=== PATIENT | female | born 1980 | race Caucasian/White ===

== ENCOUNTER 2019-08-11 22:20 | Emergency (ER) | payer SELFPAY ==
[2019-08-11 22:23] VITALS: BP 121/87; PULSE 103; RESP 18; TEMP 36.4; O2SAT 97; BMI 25.7
--- NOTE | 2019-08-11 22:53 | ED_ITS ---
Entered by Vivi Conti, acting as scribe for Mukul Pan DO Aug 11, 2019 22:20 HPI - Chest Pain General: Chief Complaint: Chest Pain Stated Complaint: chest pain Time Seen by Provider: 08/11/19 22:52 Source: patient Mode of arrival: ambulatory Limitations: no limitations History of Present Illness: HPI narrative: 39 yo f came to the er pov for ches t pain. Onset was 1 week ago. Pt states that the pain is in the middle of her chest, she also has been having some rt arm pain and her hands have been tingling. Pt states that she does have panic attacks as well. Pt states that when she takes a deep breath she has a sharp pain that shoots through her back. MD complaint: chest pain Onset (ago): week(s) (1 week ago) Timing of current episode: episodic Prior episodes: Yes Onset: during rest Pain location: substernal Pain radiation: right arm Severity: mild Quality: aching and heaviness Relieving factors: nothing Exacerbating factors: nothing Associated symptoms: Reports no associated symptoms; Deny abdominal pain, dyspnea, fever(s), nausea, palpitations or vomiting Risk Factors: Coronary artery disease risk factors: hypertension Thoracic aortic dissection risk factors: none Related Data: On Oral Contraceptives: No Review of Systems General: Reports: other (negative unless marked) Const: Denies: fever or chills Eyes: Denies: change in vision or blurry vision ENMT: Denies: painful swallowing, swelling of lips/tongue, post nasal drip or facial/sinus pain Card: Reports: chest pain and edema; Denies: palpitations, irregular heart rhythm, swelling of feet/ankles, shortness of breath on exertion or shortness of breath when lying down Resp: Denies: shortness of breath, productive cough, non-productive cough or wheezing GI: Denies: abdominal pain, nausea, vomiting or blood in stool : Denies: painful urination, urinary frequency, urinary urgency or blood in urine Musc: Reports: back pain; Denies: neck pain, redness or joint warmth Skin/Breast: Denies: rash, itching or redness Neuro: Denies: headache or dizziness Psych: Denies: anxiety PFSH ED PFSH: Social History Smoking and tobacco status: current every day smoker Physical Exam Const: GENERAL APPEARANCE: well developed ORIENTATION/CONSCIOUSNESS: Yes oriented to person, Yes oriented to place and Yes oriented to time HENMT: COMMON NORMALS: normocephalic, external ears normal and external nose normal HEAD & SCALP: normocephalic FACE & SINUS: normal facial exam NOSE: external nose normal and no nasal discharge EXTERNAL EAR: Yes external ears normal Eye: COMMON NORMALS: PERRL, EOMs intact bilaterally and conjunctivae normal EYELID: eyelids normal CONJUNCTIVA: Yes conjunctivae normal PUPIL: Yes PERRL Chest: COMMONS NORMALS: inspection of chest normal CHEST: Yes tenderness Resp: COMMON NORMALS: clear to auscultation bilaterally EFFORT & INSPECTION: No tachypneic, No respiratory distress, No retractions, No uses accessory muscles and No tracheal deviation AUSCULTATION: clear to auscultation bilaterally, no rhonchi, no wheezes and lung sounds not diminished Cardio: COMMON NORMALS: regular rate and regular rhythm RATE: regular rate RHYTHM: regular rhythm HEART SOUNDS: no murmurs PERIPHERAL PULSES: radial pulses present GI: INSPECTION: No abdominal distension AUSCULTATION: No hyperactive bowel sounds and No hypoactive bowel sounds PALPATION: No guarding and No rigid PERCUSSION: no dullness to percussion and no tympanic to percussion Neuro: SENSORIUM/ORIENTATION: Yes oriented to person, Yes oriented to place and Yes oriented to time Psych: COMMON NORMALS: mental status grossly normal Skin: COMMON NORMALS: no rashes or lesions noted GENERAL SKIN EXAM: no rashes or lesions noted Course Vital Signs: Vital signs: Vital Signs Temperature 97.6 F 08/11/19 22:23 Pulse Rate 76 08/12/19 00:18 Respiratory Rate 21 H 08/12/19 00:18 Blood Pressure 123/75 08/12/19 00:18 Pulse Oximetry 100 08/12/19 00:18 MDM - Chest Pain MDM Narrative: Medical decision making narrative: Reproducible chest pain in a 39-year-old healthy female. Her first troponin is negative. Her EKG shows no acute ST changes and a normal axis with a sinus rhythm. She is non. She had a mild leukocytosis, but without left shift. She will be allowed home with NSAIDs. Lab Data: Attestation: I reviewed the patient's lab results. Labs: Lab Results 02/23/20 02/23/20 02/23/20 Range/Units 23:00 23:00 23:00 WBC 15.1 H (4.0-10.0) 10^3/ uL RBC 4.83 (4.1-5.3) 10^6/u L Hgb 15.3 (11.5-15.3) g/dL Hct 45.7 (37.0-47.0) % MCV 94.6 (81-99) fL MCH 31.7 (28.0-34.0) pg MCHC 33.5 (30.0-36.0) g/dL RDW 12.4 (12.1-15.1) % Plt Count 374 (130-400) 10^3/c mm MPV 9.8 (7.4-10.4) fL Neut % (Auto) 69.5 % Lymph % (Auto) 22.0 % [place] % (Auto) 4.8 % Eos % (Auto) 2.7 % Baso % (Auto) 0.7 % Neut # (Auto) 10.5 H (1.8-7.7) 10^3/u L Lymph # (Auto) 3.3 (0.8-4.8) 10^3/u L [place] # (Auto) 0.7 (0.2-0.9) 10^3/u L Eos # (Auto) 0.4 (0.0-0.8) 10^3/u L Baso # (Auto) 0.1 (0.0-0.1) 10^3/u L Nucleated RBC % (a uto) 0 % Nucleated RBCs # 0.0 /100WBC Sodium 140 (136-145) mmol/L Potassium 3.7 (3.5-5.1) mmol/L Chloride 101 (98-107) mmol/L Carbon Dioxide 26 (22-29) mmol/L Anion Gap 16.7 (5-19) BUN 22 H (6-20) mg/dL Creatinine 0.8 (0.5-0.9) mg/dL GFR Calculation 79.0 L (90-130) mL/min Glucose 112 (65-115) mg/dL Calcium 10.2 (8.5-10.5) mg/dL Total Bilirubin 0.5 (0.15-1.2) mg/dL AST 32 (0-32) U/L ALT 42 H (0-33) U/L Alkaline Phosphata se 121 H (35-105) IU/L Creatine Kinase 122 (26-192) U/L Troponin T Baselin e 6 (0-10) ng/mL Total Protein 8.0 (6.6-8.7) g/dL Albumin 3.9 (3.5-5.2) g/dL Globulin 4.1 (1.3-4.6) g/dL HCG, Qual (Negative) 08/11/19 Range/Units 23:00 WBC (4.0-10.0) 10^3/ uL RBC (4.1-5.3) 10^6/u L Hgb (11.5-15.3) g/dL Hct (37.0-47.0) % MCV (81-99) fL MCH (28.0-34.0) pg MCHC (30.0-36.0) g/dL RDW (12.1-15.1) % Plt Count (130-400) 10^3/c mm MPV (7.4-10.4) fL Neut % (Auto) % Lymph % (Auto) % [place] % (Auto) % Eos % (Auto) % Baso % (Auto) % Neut # (Auto) (1.8-7.7) 10^3/u L Lymph # (Auto) (0.8-4.8) 10^3/u L [place] # (Auto) (0.2-0.9) 10^3/u L Eos # (Auto) (0.0-0.8) 10^3/u L Baso # (Auto) (0.0-0.1) 10^3/u L Nucleated RBC % (a uto) % Nucleated RBCs # /100WBC Sodium (136-145) mmol/L Potassium (3.5-5.1) mmol/L Chloride (98-107) mmol/L Carbon Dioxide (22-29) mmol/L Anion Gap (5-19) BUN (6-20) mg/dL Creatinine (0.5-0.9) mg/dL GFR Calculation (90-130) mL/min Glucose (65-115) mg/dL Calcium (8.5-10.5) mg/dL Total Bilirubin (0.15-1.2) mg/dL AST (0-32) U/L ALT (0-33) U/L Alkaline Phosphata se (35-105) IU/L Creatine Kinase (26-192) U/L Troponin T Baselin e (0-10) ng/mL Total Protein (6.6-8.7) g/dL Albumin (3.5-5.2) g/dL Globulin (1.3-4.6) g/dL HCG, Qual Negative (Negative) Discharge Plan Discharge Patient Disposition: Home, Self-Care Clinical Impression: Atypical chest pain, Costalchondritis Condition: Stable Prescriptions: New ketorolac 10 mg tablet 10 mg PO Q6H PRN (Reason: pain) Qty: 10 RF: 0 Referrals: Lily Martinez DO [Family Provider] - Andrea Dan APN [Primary Care Provider] - Discharge Diet: Advance as tolerated Discharge Activity: Increase activity as tolerated Patient Instructions: Costochondritis (ED), Noncardiac Chest Pain (ED) Activity Restrictions/Additional Instructions: Return for worsening pain or shortness of breath despite treatment, fever greater than 100, other concerning symptoms. Discharge Date/Time: 08/12/19 00:18 Coding Level of Care Code ED Barytes Grinder for Chg Fwd Exam Comprehensive The documentation recorded by the Gallito benitez Stephanie Lyn, accurately reflects the service I personally performed and the decisions made by Maxim arteaga Jeremy John, DO Aug 11, 2019 22:20
--- NOTE | 2019-08-11 22:54 | ECG_ITS ---
Measurements Intervals [place] Rate: 105 P: 53 CT: 114 QRS: 67 QRSD: 84 T: 64 QT: 326 QTc: [address] WITH SHORT [address] INTERVAL ABNORMAL RHYTHM ECG Compared to ECG 12/07/2018 20:09:49 Sinus rhythm no longer present Electronically Signed On 08-12-2019 15:33:30 ELECTRIC MOTORMAN by Luciana Lciea M.D. [id number] f
[2019-08-11 23:01] VITALS: BP 119/90; PULSE 92; RESP 20; O2SAT 98
[2019-08-11 23:03] LABS: Basophils # 0.1 10^3/uL (0.0-0.1); Basophils % 0.7 %; Eosinophils # 0.4 10^3/uL (0.0-0.8); Eosinophils % 2.7 %; Hematocrit 45.7 % (37.0-47.0); Hemoglobin 15.3 g/dL (11.5-15.3); Lymphocytes # 3.3 10^3/uL (0.8-4.8); Mean Corpuscular HGB Conc 33.5 g/dL (30.0-36.0); Mean Corpuscular Hemoglobin 31.7 pg (28.0-34.0); Mean Corpuscular Volume 94.6 fL (81-99); Mean Platelet Volume 9.8 fL (7.4-10.4); Monocytes # 0.7 10^3/uL (0.2-0.9); Monocytes % 4.8 %; Neutrophils # 10.5 10^3/uL (1.8-7.7); Neutrophils % 69.5 %; Nucleated Red Blood Cells % 0 %; Platelet Count 374 10^3/cmm (130-400); Red Blood Count 4.83 10^6/uL (4.1-5.3); Red Cell Distribution Width 12.4 % (12.1-15.1); White Blood Count 15.1 10^3/uL (4.0-10.0)
[2019-08-11 23:18] LABS: HCG, Serum Qual Negative (Negative)
[2019-08-11 23:23] LABS: Alanine Aminotransferase 42 U/L (0-33); Albumin Level 3.9 g/dL (3.5-5.2); Alkaline Phosphatase 121 IU/L (35-105); Anion Gap 16.7 (5-19); Aspartate Amino Transferase 32 U/L (0-32); Blood Urea Nitrogen 22 mg/dL (6-20); Calcium 10.2 mg/dL (8.5-10.5); Carbon Dioxide 26 mmol/L (22-29); Chloride 101 mmol/L (98-107); Creatine Phosphokinase 122 U/L (26-192); Globulin 4.1 g/dL (1.3-4.6); Glucose 112 mg/dL (65-115); Potassium 3.7 mmol/L (3.5-5.1); Sodium 140 mmol/L (136-145); Total Bilirubin 0.5 mg/dL (0.15-1.2)
[2019-08-11 23:36] LABS: Troponin(5th) Baseline 6 ng/mL (0-10)
[2019-08-12] MEDS: ondansetron 2 mg/ML SDV 2 mL 4 MG IVP (00:01)
[2019-08-12] MEDS: ketorolac 30 mg/mL INJ IVP (00:04)
[2019-08-12 00:18] VITALS: BP 123/75; PULSE 76; RESP 21; O2SAT 100
== END 2019-08-12 00:18 | disposition home or self-care (01) ==
PROVIDERS: Emergency Provider Emergency Medicine; Family Provider Family Medicine; PCP Nurse Practitioner Family
DX: R07.89 Other chest pain (principal); M94.0 Chondrocostal junction syndrome [Tietze]; F17.200 Nicotine dependence, unspecified, uncomplicated
CPT/HCPCS: 80053; 82550; 84484; 84703; 85025; 93005; 96374; 96375; 99283; 99284; J1885; J2405

== ENCOUNTER 2019-10-19 12:02 | Emergency (ER) | payer SELFPAY ==
--- NOTE | 2019-10-19 12:06 | W.ED.GENADLT ---
HPI - General Adult General: Chief complaint: General Medical Stated complaint: swelling Time Seen by Provider: 10/19/19 12:06 History of Present Illness: HPI narrative: 39-year-old female presents the emergency room with complaint of swelling. She states this has been going on for the last week, she also is complaining of some shortness of breath and chest discomfort with it. She has been trying to cut back on her meth use she last used this morning. She is not had any orthopnea or PND denies fever sweats chills sinus productive cough. She does states she gets some back discomfort with urination. No hematuria no history of renal stones Onset (ago): week(s) (2) Relieving factors: none Exacerbating factors: none Associated symptoms: Reports chest pain, dyspnea and short of breath; Deny fevers/chills, malaise, nausea, rash, palpitations, syncope, vomiting or weakness Review of Systems Const: Denies: fever, chills, body aches, change in appetite, fatigue or malaise ENMT: Denies: throat pain, ear pain, nasal discharge or nasal congestion Card: Reports: chest pain; Denies: palpitations or syncope Resp: Reports: shortness of breath GI: Denies: nausea or vomiting : Denies: flank pain, difficulty urinating, painful urination, urinary frequency or urinary urgency Skin/Breast: Denies: rash PFSH ED PFSH: Medical History (Updated 10/19/19 @ 13:27 by Reed Castorena DO) ADHD Hepatitis C Surgical History (Updated 10/19/19 @ 12:18 by Reed Castorena DO) H/O Spinal surgery History of hysterectomy Myringotomy tube status Social History Smoking and tobacco status: current every day smoker Physical Exam Const: COMMON NORMALS: no apparent distress GENERAL APPEARANCE: cooperative and comfortable ORIENTATION/CONSCIOUSNESS: Yes awake, Yes oriented to person, Yes oriented to place and Yes oriented to time HENMT: COMMON NORMALS: normocephalic, head/scalp atraumatic, hearing grossly normal bilaterally, external ears normal, EAC's normal, TM's normal bilaterally, nasal mucous membranes and turbinates normal, moist oral mucous membranes and oropharynx normal HEAD & SCALP: normocephalic and atraumatic NOSE: nasal mucous membranes and turbinates normal EXTERNAL EAR: Yes external ears normal EXTERNAL AUDITORY CANAL: EAC's normal TYMPANIC MEMBRANE: TM's normal bilaterally Eye: COMMON NORMALS: PERRL, EOMs intact bilaterally, conjunctivae normal and no scleral icterus CONJUNCTIVA: Yes conjunctivae normal PUPIL: Yes PERRL Neck/C-Spine: COMMON NORMALS: full ROM, no lymphadenopathy, supple and no JVD Lymph: LYMPHATIC: no lymphadenopathy noted and no lymphedema noted Resp: COMMON NORMALS: normal respiratory effort, no retractions, no use of accessory muscles and clear to auscultation bilaterally AUSCULTATION: clear to auscultation bilaterally Cardio: COMMON NORMALS: no JVD, regular rate, regular rhythm and no murmurs RATE: regular rate RHYTHM: regular rhythm GI: COMMON NORMALS: soft to palpation and no hepatosplenomegaly AUSCULTATION: Yes normoactive bowel sounds PALPATION: Yes soft, No tender, No guarding and Yes no hepatosplenomegaly Extremity: COMMON NORMALS: normal to inspection, normal capillary refill, no clubbing, cyanosis or edema, no calf tenderness and no pedal edema Neuro: SENSORIUM/ORIENTATION: Yes oriented to person, Yes oriented to place and Yes oriented to time Skin: COMMON NORMALS: no rashes or lesions noted GENERAL SKIN EXAM: no rashes or lesions noted Course Vital Signs: Vital signs: Vital Signs Temperature 98.1 F 10/19/19 12:08 Pulse Rate 101 H 10/19/19 12:08 Respiratory Rate 17 10/19/19 12:19 Blood Pressure 135/90 10/19/19 12:08 Pulse Oximetry 99 10/19/19 12:08 MDM - General Adult MDM Narrative: Medical decision making narrative: She has no significant edema on exam. She had referred to some blister she had on the bottom of her second third and fourth toes is edematous she is worried that those are somehow related to her having diabetes. She walks around barefoot up quite a bit she was wearing some flip-flops today in the emergency room [place] her feet are quite soiled. Laboratory tests are otherwise unremarkable discussed this with her. I think some of this may be due to her methamphetamine use she agreed with that assessment. Encouraged her to consider assistance with stopping through an agency such as [facility]. Patient states she has been trying to cut back. Lab Data: Labs: Lab Results 10/19/19 10/19/19 10/19/19 Range/Units 12:27 12:27 12:27 WBC 13.9 H (4.0-10.0) 10^3/ uL RBC 4.83 (4.1-5.3) 10^6/u L Hgb 15.2 (11.5-15.3) g/dL Hct 46.0 (37.0-47.0) % MCV 95.2 (81-99) fL MCH 31.5 (28.0-34.0) pg MCHC 33.0 (30.0-36.0) g/dL RDW 12.8 (12.1-15.1) % Plt Count 294 (130-400) 10^3/c mm MPV 9.5 (7.4-10.4) fL Neut % (Auto) 25.0 % Lymph % (Auto) 66.8 % [place] % (Auto) 4.1 % Eos % (Auto) 2.6 % Baso % (Auto) 1.2 % Neut # (Auto) 3.5 (1.8-7.7) 10^3/u L Lymph # (Auto) 9.3 H (0.8-4.8) 10^3/u L [place] # (Auto) 0.6 (0.2-0.9) 10^3/u L Eos # (Auto) 0.4 (0.0-0.8) 10^3/u L Baso # (Auto) 0.2 H (0.0-0.1) 10^3/u L Nucleated RBC % (a uto) 0 % Nucleated RBCs # 0.0 /100WBC Sodium 136 (136-145) mmol/L Potassium 4.2 (3.5-5.1) mmol/L Chloride 100 (98-107) mmol/L Carbon Dioxide 27 (22-29) mmol/L Anion Gap 13.2 (5-19) BUN 15 (6-20) mg/dL Creatinine 0.8 (0.5-0.9) mg/dL GFR Calculation 79.0 L (90-130) mL/min Glucose 100 (65-115) mg/dL Calculated Osmolal ity 278 L (285-295) mOsm/k g Calcium 9.2 (8.5-10.5) mg/dL Total Bilirubin 0.3 (0.15-1.2) mg/dL AST 84 H (0-32) U/L ALT 132 H (0-33) U/L Alkaline Phosphata se 300 H (35-105) IU/L Troponin T Baselin e 6 (0-10) ng/mL Total Protein 7.6 (6.6-8.7) g/dL Albumin 3.6 (3.5-5.2) g/dL Globulin 4.0 (1.3-4.6) g/dL Urine Color (Yellow) Urine Appearance (CLEAR) Urine pH (5-7) Ur Specific Gravit y (1.005-1.030) Urine Protein (Negative) Urine Glucose (UA) (Normal) Urine Ketones (Negative) Urine Blood (Negative) Urine Nitrate (Negative) Urine Bilirubin (NEGATIVE) Urine Urobilinogen (Negative) mg/dL Ur Leukocyte Josie ase (Negative) 10/19/19 Range/Units 12:36 WBC (4.0-10.0) 10^3/ uL RBC (4.1-5.3) 10^6/u L Hgb (11.5-15.3) g/dL Hct (37.0-47.0) % MCV (81-99) fL MCH (28.0-34.0) pg MCHC (30.0-36.0) g/dL RDW (12.1-15.1) % Plt Count (130-400) 10^3/c mm MPV (7.4-10.4) fL Neut % (Auto) % Lymph % (Auto) % [place] % (Auto) % Eos % (Auto) % Baso % (Auto) % Neut # (Auto) (1.8-7.7) 10^3/u L Lymph # (Auto) (0.8-4.8) 10^3/u L [place] # (Auto) (0.2-0.9) 10^3/u L Eos # (Auto) (0.0-0.8) 10^3/u L Baso # (Auto) (0.0-0.1) 10^3/u L Nucleated RBC % (a uto) % Nucleated RBCs # /100WBC Sodium (136-145) mmol/L Potassium (3.5-5.1) mmol/L Chloride (98-107) mmol/L Carbon Dioxide (22-29) mmol/L Anion Gap (5-19) BUN (6-20) mg/dL Creatinine (0.5-0.9) mg/dL GFR Calculation (90-130) mL/min Glucose (65-115) mg/dL Calculated Osmolal ity (285-295) mOsm/k g Calcium (8.5-10.5) mg/dL Total Bilirubin (0.15-1.2) mg/dL AST (0-32) U/L ALT (0-33) U/L Alkaline Phosphata se (35-105) IU/L Troponin T Baselin e (0-10) ng/mL Total Protein (6.6-8.7) g/dL Albumin (3.5-5.2) g/dL Globulin (1.3-4.6) g/dL Urine Color Yellow (Yellow) Urine Appearance Clear (CLEAR) Urine pH 5 (5-7) Ur Specific Gravit y 1.025 (1.005-1.030) Urine Protein Neg (Negative) Urine Glucose (UA) Norm (Normal) Urine Ketones Negative (Negative) Urine Blood Neg (Negative) Urine Nitrate Negative (Negative) Urine Bilirubin Neg (NEGATIVE) Urine Urobilinogen 1 H (Negative) mg/dL Ur Leukocyte Josie ase Negative (Negative) Discharge Plan Discharge Patient Disposition: Home, Self-Care Clinical Impression: Substance abuse Condition: Stable Prescriptions: No Action No Known Home Medications RF: 0 Discharge Orders: Discharge Order (Routine); Ordered 10/19/19 Ordered By: Reed Castorena Referrals: Lily Martinez DO [Family Provider] - Andrea Dan APN [Primary Care Provider] - Discharge Diet: Usual diet Discharge Activity: Resume usual activity Activity Restrictions/Additional Instructions: Avoid use of mass. Recommend following up with a substance abuse counselor such as [facility] [place]. Coding Level of Care Code ED Vocational Services Specialist for Chg Fwd Exam Comprehensive
[2019-10-19 12:08] VITALS: BP 135/90; PULSE 101; RESP 16; TEMP 36.7; O2SAT 99; BMI 27.4
--- NOTE | 2019-10-19 12:18 | XRR_ITS ---
PROCEDURE INFORMATION: Exam: XR Chest, 1 View Exam date and time: 10/19/2019 12:46 PM Age: 39 years old Clinical indication: Chest pain; Additional info: Dyspnea/cough TECHNIQUE: Imaging protocol: XR of the chest Views: 1 view. COMPARISON: CR Chest 2 views* [id number] 12/24/2018 11:49 AM FINDINGS: Lungs: The lungs are clear. Pleural space: Unremarkable. No pleural effusion. No pneumothorax. Heart/Mediastinum: Unremarkable. No cardiomegaly. Bones/joints: Unremarkable. XR/XR chest 1V portable [id number] IMPRESSION: No acute cardiopulmonary abnormality.
[2019-10-19 12:19] VITALS: RESP 17
--- NOTE | 2019-10-19 12:19 | ECG_ITS ---
Measurements Intervals [place] Rate: 87 P: 60 [place]: 129 QRS: 68 QRSD: 85 T: 63 QT: 341 QTc: 412 SINUS RHYTHM INTERPRETATION BASED ON A DEFAULT AGE OF 40 YEARS Compared to ECG 08/11/2019 22:34:07 Sinus tachycardia no longer present Short CA interval no longer present Electronically Signed On 10-19-2019 16:22:58 CDT by Waleska Baker M.D. [id number] f
[2019-10-19 12:37] LABS: Mean Platelet Volume 9.5 fL (7.4-10.4); Nucleated Red Blood Cells % 0 %; Red Cell Distribution Width 12.8 % (12.1-15.1)
[2019-10-19 12:41] LABS: Basophils # 0.2 10^3/uL (0.0-0.1); Basophils % 1.2 %; Eosinophils # 0.4 10^3/uL (0.0-0.8); Eosinophils % 2.6 %; Hemoglobin 15.2 g/dL (11.5-15.3); Lymphocytes # 9.3 10^3/uL (0.8-4.8); Lymphocytes % 66.8 %; Mean Corpuscular Hemoglobin 31.5 pg (28.0-34.0); Mean Corpuscular Volume 95.2 fL (81-99); Monocytes # 0.6 10^3/uL (0.2-0.9); Monocytes % 4.1 %; Neutrophils # 3.5 10^3/uL (1.8-7.7); Platelet Count 294 10^3/cmm (130-400); Red Blood Count 4.83 10^6/uL (4.1-5.3); White Blood Count 13.9 10^3/uL (4.0-10.0)
[2019-10-19 12:53] LABS: Add Urine Microscopic? NO; Urine Color Yellow (Yellow)
[2019-10-19 12:54] LABS: Bilirubin Urine Neg (NEGATIVE); Blood Urine Neg (Negative); Glucose Urine UA Norm (Normal); Ketones Urine Negative (Negative); Leukocyte Esterase Urine Negative (Negative); Nitrate Urine Negative (Negative); Protein Urine Neg (Negative); Specific Gravity, Urine 1.025 (1.005-1.030); Urine Appearance Clear (CLEAR); Urobilinogen Urine 1 mg/dL (Negative); pH Urine 5 (5-7)
[2019-10-19 13:00] LABS: Alanine Aminotransferase 132 U/L (0-33); Albumin Level 3.6 g/dL (3.5-5.2); Alkaline Phosphatase 300 IU/L (35-105); Anion Gap 13.2 (5-19); Aspartate Amino Transferase 84 U/L (0-32); Blood Urea Nitrogen 15 mg/dL (6-20); Calcium 9.2 mg/dL (8.5-10.5); Carbon Dioxide 27 mmol/L (22-29); Chloride 100 mmol/L (98-107); Glucose 100 mg/dL (65-115); Osmolality Calculated 278 mOsm/kg (285-295); Potassium 4.2 mmol/L (3.5-5.1); Slide Review Slide Review Perform; Sodium 136 mmol/L (136-145); Total Bilirubin 0.3 mg/dL (0.15-1.2); Total Protein 7.6 g/dL (6.6-8.7)
[2019-10-19 13:13] LABS: Troponin(5th) Baseline 6 ng/mL (0-10)
[2019-10-19 13:51] VITALS: RESP 17; O2SAT 98
== END 2019-10-19 13:52 | disposition home or self-care (01) ==
PROVIDERS: Emergency Provider Family Medicine; Family Provider Family Medicine; PCP Nurse Practitioner Family
DX: F19.10 Other psychoactive substance abuse, uncomplicated (principal); Z86.19 Personal history of other infectious and parasitic diseases; F17.210 Nicotine dependence, cigarettes, uncomplicated
CPT/HCPCS: 12345; 36415; 71045; 80053; 81003; 84484; 85025; 93005; 99282; 99283; A9270

== ENCOUNTER 2020-01-27 07:37 | Emergency (ER) | payer SELFPAY ==
[2020-01-27 07:42] VITALS: BP 127/93; PULSE 93; RESP 18; TEMP 35.7; O2SAT 97; BMI 28.3
[2020-01-27 08:10] VITALS: BP 119/75; PULSE 87; RESP 16; O2SAT 99
--- NOTE | 2020-01-27 08:10 | XRR_ITS ---
PROCEDURE INFORMATION: Exam: XR Chest, 1 View Exam date and time: 01/27/2020 8:26 AM Age: 40 years old Clinical indication: Cough and dyspnea; Chest pain; Type not specified; Additional info: Dyspnea/cough TECHNIQUE: Imaging protocol: XR of the chest Views: Frontal portable upright view of the chest. COMPARISON: CR XR chest 1V portable [id number] 10/19/2019 12:32 PM FINDINGS: Lungs: The lungs are clear bilaterally. The pulmonary vasculature is normal. Pleural space: No pleural effusion. No pneumothorax. Heart/Mediastinum: The heart is normal in size and contour. Mediastinum: Stable. Bones/joints: Stable. XR/XR chest 1V portable [id number] IMPRESSION: No acute cardiopulmonary abnormality identified.
--- NOTE | 2020-01-27 08:10 | ECG_ITS ---
[facility] Test Date: 2020-01-27 Pat Name: Nemo Ramirez Department: Room: Gender: Female [employer]: : 1980 Requested By: Reed Lopez Order Number: [id number] Reese MD: Luciana Licea M.D. Measurements Intervals [place] Rate: 78 P: 59 [place]: 135 QRS: 65 QRSD: 79 T: 54 QT: 357 QTc: 408 Interpretive Statements SINUS RHYTHM Compared to ECG 10/19/2019 12:36:53 No significant changes Electronically Signed On 01-27-2020 15:46:40 CDT by Luciana Licea M.D. [id number]
[2020-01-27 08:23] LABS: Basophils # 0.1 10^3/uL (0.0-0.1); Basophils % 0.7 %; Eosinophils # 0.6 10^3/uL (0.0-0.8); Eosinophils % 5.7 %; Hematocrit 42.1 % (37.0-47.0); Hemoglobin 14.2 g/dL (11.5-15.3); Lymphocytes # 2.9 10^3/uL (0.8-4.8); Lymphocytes % 28.5 %; Mean Corpuscular HGB Conc 33.7 g/dL (30.0-36.0); Mean Corpuscular Hemoglobin 31.9 pg (28.0-34.0); Mean Corpuscular Volume 94.6 fL (81-99); Mean Platelet Volume 9.6 fL (7.4-10.4); Monocytes # 0.7 10^3/uL (0.2-0.9); Neutrophils # 5.92 10^3/uL (1.8-7.7); Neutrophils % 57.9 %; Nucleated Red Blood Cells % 0 %; Platelet Count 281 10^3/cmm (130-400); Red Blood Count 4.45 10^6/uL (4.1-5.3); Red Cell Distribution Width 12.9 % (12.1-15.1); White Blood Count 10.2 10^3/uL (4.0-10.0)
[2020-01-27 08:23] LABS: Add Urine Microscopic? NO
[2020-01-27 08:25] LABS: Bilirubin Urine Neg (NEGATIVE); Blood Urine Neg (Negative); Glucose Urine UA Norm (Normal); Ketones Urine Negative (Negative); Leukocyte Esterase Urine Negative (Negative); Nitrate Urine Negative (Negative); Protein Urine Neg (Negative); Urine Appearance Clear (CLEAR); Urine Color Yellow (Yellow); Urobilinogen Urine Norm (Negative); pH Urine 7 (5-7)
[2020-01-27 08:45] LABS: Alanine Aminotransferase 84 U/L (0-33); Albumin Level 4.1 g/dL (3.5-5.2); Alkaline Phosphatase 106 IU/L (35-105); Anion Gap 12.5 (5-19); Aspartate Amino Transferase 39 U/L (0-32); Blood Urea Nitrogen 17 mg/dL (6-20); Calcium 9.9 mg/dL (8.5-10.5); Carbon Dioxide 24 mmol/L (22-29); Chloride 108 mmol/L (98-107); Creatine Phosphokinase 87 U/L (26-192); Glomerular Filtration Rate 68.7 mL/min (90-130); Glucose 132 mg/dL (65-115); Lipase 23 U/L (13-60); Osmolality Calculated 290 mOsm/kg (285-295); Potassium 3.5 mmol/L (3.5-5.1); Sodium 141 mmol/L (136-145); Total Bilirubin 0.2 mg/dL (0.15-1.2); Total Protein 7.1 g/dL (6.6-8.7)
--- NOTE | 2020-01-27 09:06 | ED_ITS ---
HPI - General Adult General: Chief complaint: General Medical Stated complaint: BROWN/DIZZY Time Seen by Provider: 01/27/20 07:41 History of Present Illness: HPI narrative: 40-year-old female presents emergency room states she is just not feeling well and feels like she is turning yellow. She admits to high degree of stress with how she is dealing with her fianc? who is been extremely ill lately has been in and out of the hospital in ER several times she has a headache and some dizziness she has a vague chest pain associated with eating and when she gets anxious last for a few seconds does not persistent she has some abdominal discomfort that she relates to being constipated no sharp abdominal pain no vomiting or diarrhea. She denies dysuria but she does have some frequency. She is not had any fever sweats or chills she denies any respiratory symptoms she is not better now anyone who is been known to be to COVID positive. Onset (ago): day(s) Severity: mild Relieving factors: none Exacerbating factors: none Associated symptoms: Reports chest pain (Brief twinges, also associated with eating), headache(s), malaise, nausea, short of breath and weakness; Deny cough, diaphoresis, dyspnea, fevers/chills, rash, syncope or vomiting Treatments prior to arrival: none Review of Systems Const: Reports: malaise; Denies: diaphoresis ENMT: Denies: throat pain, ear or mastoid pain, nasal discharge or nasal congestion Card: Reports: chest pain (Brief twinges, also associated with eating); Denies: syncope Resp: Denies: dyspnea GI: Reports: nausea; Denies: vomiting : Denies: flank pain, difficulty voiding, dysuria, urinary frequency or urinary urgency Skin/Breast: Denies: rash or pruritus Neuro: Reports: headache(s) PFSH ED PFSH: Medical History ADHD Hepatitis C Surgical History H/O Spinal surgery History of hysterectomy Myringotomy tube status Social History Smoking and tobacco status: current every day smoker Current gender identity: Female Physical Exam Const: COMMON NORMALS: no acute distress GENERAL APPEARANCE: cooperative and comfortable ORIENTATION/CONSCIOUSNESS: Yes awake, Yes oriented to person, Yes oriented to place and Yes oriented to time HENMT: COMMON NORMALS: normocephalic, atraumatic and hearing grossly normal bilaterally HEAD & SCALP: normocephalic and atraumatic Eye: COMMON NORMALS: Equal, round and reactive pupils present, EOMs intact bilaterally, conjunctivae normal and no scleral icterus CONJUNCTIVA: Yes conjunctivae normal PUPIL: Yes Equal, round and reactive pupils present Neck/C-Spine: COMMON NORMALS: full ROM, no lymphadenopathy, supple and no JVD Lymph: LYMPHATIC: no lymphadenopathy noted and no lymphedema noted Resp: COMMON NORMALS: normal respiratory effort, No retractions, No use of accessory muscles and clear to auscultation bilaterally AUSCULTATION: clear to auscultation bilaterally Cardio: COMMON NORMALS: no JVD, regular rate, regular rhythm and No murmurs present (Cardio) RATE: regular rate RHYTHM: regular rhythm GI: COMMON NORMALS: Soft to palpation and No hepatosplenomegaly present AUSCULTATION: Yes normoactive bowel sounds PALPATION: Yes Soft to palpation, No Tenderness to palpation present (GI), No Guarding due to palpation present (GI) and Yes No hepatosplenomegaly present Extremity: COMMON NORMALS: normal to inspection, capillary refill normal, no clubbing, cyanosis or edema, no calf tenderness and no pedal edema Neuro: SENSORIUM/ORIENTATION: Yes oriented to person, Yes oriented to place and Yes oriented to time Skin: COMMON NORMALS: no rashes or lesions noted GENERAL SKIN EXAM: no rashes or lesions noted Course Vital Signs: Vital signs: Vital Signs Temperature 96.2 F L 01/27/20 07:42 Pulse Rate 78 01/27/20 10:26 Respiratory Rate 14 01/27/20 10:26 Blood Pressure 129/84 01/27/20 10:26 Pulse Oximetry 100 01/27/20 10:26 MDM - General Adult MDM Narrative: Medical decision making narrative: Reviewed findings with patient. At this point she has no significant hyperbilirubinemia she does not have significant elevation of her liver enzymes. We will go ahead and get her discharged to have her follow-up with her primary care doctor return if she has problems. Lab Data: Attestation: I reviewed the patient's lab results. Labs: Lab Results 01/27/20 01/27/20 01/27/20 Range/Units 08:02 08:17 08:17 WBC 10.2 H (4.0-10.0) 10^3/ uL RBC 4.45 (4.1-5.3) 10^6/u L Hgb 14.2 (11.5-15.3) g/dL Hct 42.1 (37.0-47.0) % MCV 94.6 (81-99) fL MCH 31.9 (28.0-34.0) pg MCHC 33.7 (30.0-36.0) g/dL RDW 12.9 (12.1-15.1) % Plt Count 281 (130-400) 10^3/c mm MPV 9.6 (7.4-10.4) fL Neut % (Auto) 57.9 % Lymph % (Auto) 28.5 % [place] % (Auto) 7.0 % Eos % (Auto) 5.7 % Baso % (Auto) 0.7 % Neut # (Auto) 5.92 (1.8-7.7) 10^3/u L Lymph # (Auto) 2.9 (0.8-4.8) 10^3/u L [place] # (Auto) 0.7 (0.2-0.9) 10^3/u L Eos # (Auto) 0.6 (0.0-0.8) 10^3/u L Baso # (Auto) 0.1 (0.0-0.1) 10^3/u L Nucleated RBC % (a uto) 0 % Nucleated RBCs # 0.0 /100WBC Sodium 141 (136-145) mmol/L Potassium 3.5 (3.5-5.1) mmol/L Chloride 108 H (98-107) mmol/L Carbon Dioxide 24 (22-29) mmol/L Anion Gap 12.5 (5-19) BUN 17 (6-20) mg/dL Creatinine 0.9 (0.5-0.9) mg/dL GFR Calculation 68.7 L (90-130) mL/min Glucose 132 H (65-115) mg/dL Calculated Osmolal ity 290 (285-295) mOsm/k g Calcium 9.9 (8.5-10.5) mg/dL Total Bilirubin 0.2 (0.15-1.2) mg/dL AST 39 H (0-32) U/L ALT 84 H (0-33) U/L Alkaline Phosphata se 106 H (35-105) IU/L Creatine Kinase 87 (26-192) U/L Total Protein 7.1 (6.6-8.7) g/dL Albumin 4.1 (3.5-5.2) g/dL Globulin 3.0 (1.3-4.6) g/dL Lipase 23 (13-60) U/L Urine Color Yellow (Yellow) Urine Appearance Clear (CLEAR) Urine pH 7 (5-7) Ur Specific Gravit y 1.010 (1.005-1.030) Urine Protein Neg (Negative) Urine Glucose (UA) Norm (Normal) Urine Ketones Negative (Negative) Urine Blood Neg (Negative) Urine Nitrate Negative (Negative) Urine Bilirubin Neg (NEGATIVE) Urine Urobilinogen Norm (Negative) mg/dL Ur Leukocyte Josie ase Negative (Negative) Discharge Plan Discharge Patient Disposition: Home Clinical Impression: Anxiety, Hepatitis C Condition: Stable Prescriptions: New hydroxyzine HCl 25 mg tablet 25 mg PO Q6H PRN (Reason: anxiety) Qty: 10 RF: 0 Discharge Orders: Discharge Order (Routine); Ordered 01/27/20 Ordered By: Reed Castorena Referrals: Ni Mendez APN [Primary Care Provider] - Discharge Diet: Usual diet Discharge Activity: Increase activity as tolerated Discharge Date/Time: 01/27/20 10:26 Coding Level of Care Code ED Electrical Maintenance Engineer for Qasim Fwd Exam Comprehensive
--- NOTE | 2020-01-27 09:09 | US_ITS ---
WS: [id number] ULTRASOUND ABDOMEN LIMITED CLINICAL INFORMATION: abd pain/elevated LFTs COMPARISON: None. FINDINGS: Liver Size: Normal. Craniocaudal length: 14.9 cm. Echogenicity: Normal. Surface nodularity: None. Mass (size and location): None. Bile ducts Intrahepatic ducts: Normal. Common bile duct diameter: 0.4 cm. Gallbladder Contracted Gallstones: None. Gallbladder sludge: None. Gallbladder wall thickening: None. Pericholecystic fluid: None. Sonographic Slater sign: Absent. Pancreas Normal as visualized. Right kidney: Mild hydronephrosis Hydronephrosis: Mild Size: 11.2 cm x 4.7 cm x 4.3 cm. Abdominal aorta and IVC Visualized portions are normal. Ascites: None. US/US gall bladder 21573 IMPRESSION: 1. Normal liver. 2. Gallbladder is contracted. Normal common bile duct. 3. Mild hydronephrosis right kidney.
[2020-01-27 09:22] VITALS: BP 113/78; PULSE 76; RESP 17; O2SAT 99
[2020-01-27 10:26] VITALS: BP 129/84; PULSE 78; RESP 14; O2SAT 100
== END 2020-01-27 10:26 | disposition home or self-care (01) ==
PROVIDERS: Emergency Provider Family Medicine; PCP Nurse Practitioner Family
DX: F41.9 Anxiety disorder, unspecified (principal); B19.20 Unspecified viral hepatitis C without hepatic coma; F17.210 Nicotine dependence, cigarettes, uncomplicated
CPT/HCPCS: 12345; 36415; 71045; 76705; 80053; 81003; 82550; 83690; 85025; 93005; 99283

== ENCOUNTER 2020-03-31 11:06 | Emergency (ER) | payer SELFPAY ==
[2020-03-31 11:06] VITALS: BP 135/94; PULSE 77; RESP 16; TEMP 36.6; O2SAT 99; BMI 27.4
--- NOTE | 2020-03-31 11:14 | W.ED.ABDPA2 ---
HPI - Abdominal Pain General: Chief Complaint: Abdominal Pain Stated Complaint: ABD PAIN Time Seen by Provider: 03/31/20 11:13 History of Present Illness: HPI narrative: 40-year-old female patient presents to the emergency department via EMS. She reports 7-day onset of abdominal pain, reports was having sex last when she developed worsening pelvic pain. She reports nausea, crampy feeling, reports chills, has not exhibited fever or vomiting. Last normal bowel movement yesterday, history of methamphetamine use with last use 7 days prior. She has history of partial hysterectomy. Pain localized to the left lower quadrant. MD elicited complaint: abdominal pain and flank pain (Left) Pertinent past history: other (Partial hysterectomy, chronic hep C) Onset (ago): hour(s) (12) Pain Consistency: constant Location: LUQ and LLQ Severity: moderate Quality: cramping Associated Symptoms: Reports chills; Denies dysuria, fever(s), hematuria, nausea and vomiting Review of Systems General: Reports: 10 or more systems reviewed and unremarkable except in HPI and below Const: Reports: chills; Denies: fever(s), fatigue or diaphoresis Eyes: Denies: blurry vision or eye redness ENMT: Denies: throat pain, dental pain or disequilibrium Card: Denies: chest pain, palpitations, irregular heart rhythm or swelling of feet/ankles Resp: Denies: dyspnea, productive cough, non-productive cough or wheezing GI: Denies: abdominal pain, nausea or vomiting : Reports: flank pain (Left), urinary frequency, urinary urgency, urinary hesitancy and vaginal discharge (Cloudy); Denies: difficulty voiding, dysuria, urinary incontinence or hematuria Musc: Denies: neck pain or back pain Skin/Breast: Denies: rash or pruritus Neuro: Denies: headache(s), weakness in extremities or behavioral changes John/Lymph: Denies: easy bruising PFSH ED PFSH: Medical History (Updated 03/31/20 @ 14:20 by LOUISA Bhandari) ADHD Cannabis use disorder, severe, dependence Hepatitis C Methamphetamine use disorder, severe Substance induced mood disorder Surgical History H/O Spinal surgery History of hysterectomy Myringotomy tube status Social History (Reviewed 08/10/20 @ 09:08 by ALFONSO Lema Smoking and tobacco status: current every day smoker Current gender identity: Female Physical Exam Const: COMMON NORMALS: no acute distress, patient oriented x3, healthy appearing and alert GENERAL APPEARANCE: cooperative, comfortable and well hydrated HENMT: COMMON NORMALS: normocephalic, Normal external nose present and moist oral mucous membranes HEAD & SCALP: normocephalic NOSE: Normal external nose present Eye: COMMON NORMALS: Equal, round and reactive pupils present and EOMs intact bilaterally GENERAL EYE: appearance normal, both eyes and all related structures PUPIL: Yes Equal, round and reactive pupils present Neck/C-Spine: COMMON NORMALS: full ROM and no lymphadenopathy GENERAL: Yes normal visual inspection and Yes trachea midline CERVICAL SPINE: Yes cervical ROM normal Lymph: LYMPHATIC: no lymphadenopathy noted Chest: COMMONS NORMALS: normal inspection of the chest Resp: COMMON NORMALS: normal respiratory effort and clear to auscultation bilaterally AUSCULTATION: clear to auscultation bilaterally Cardio: COMMON NORMALS: regular rhythm, S1 normal heart sound present, S2 normal heart sound present and Peripheral pulses 2+ throughout RHYTHM: regular rhythm HEART SOUNDS: S1 normal heart sound present and S2 normal heart sound present PERIPHERAL PULSES: Peripheral pulses 2+ throughout GI: COMMON NORMALS: Normal to inspection, nondistended, normoactive bowel sounds present and Soft to palpation INSPECTION: Yes normal to inspection PALPATION: Yes Soft to palpation, Yes Tenderness to palpation present (GI) Details: LLQ and LUQ and Yes Rebound tenderness present Details: other (left lower quad) : COMMON NORMALS: Yes normal appearance of the vagina BLADDER/KIDNEY EXAM: Yes bladder normal to palpation and Yes CVA tenderness on the left EXTERNAL FEMALE EXAM: Yes normal appearance of the urethra, No Inguinal lymphadenopathy, No externally tender and No external swelling SPECULUM EXAM - VAGINA: No foreign body, No lesion and No tenderness SPECULUM EXAM - CERVIX: Yes Cervix absent, Yes Abnormal cervical discharge present white and malodorous and No Cervical lesion present BIMANUAL EXAM - VAGINA & UTERUS: Yes bladder normal to palpation BIMANUAL EXAM - ADNEXA, OTHER: Yes normal and Yes tender on the left OB/EXTERNAL & SPECULUM: no foreign bodies Back/Pelvis: COMMON NORMALS: thoracic and lumbar spine normal to inspection GENERAL BACK: Yes CVA tenderness Extremity: COMMON NORMALS: normal to inspection and capillary refill normal Neuro: COMMON NORMALS: patient oriented x3 and no focal motor deficits SENSORIUM/ORIENTATION: Yes alert Psych: COMMON NORMALS: mental status grossly normal, Normal thought process present and cooperative ACTIVITY/MOTOR BEHAVIOR: Yes appropriate eye contact THOUGHT PROCESS: Normal thought process present Skin: COMMON NORMALS: no rashes or lesions noted and turgor normal GENERAL SKIN EXAM: no rashes or lesions noted and turgor normal Course ED course: 40-year-old female patient presents to the emergency department with 7-day onset of upper abdominal pain with radiation down to the lower pelvic area the past 12 hours after sexual intercourse. Pelvic exam revealed left lower quadrant tenderness, CT scan of the abdomen and pelvis revealed distal dilated loop of the small bowel with wall thickening. She reports was thirsty in the ER, Zofran administered, she was able to tolerate oral fluids without vomiting. She has not exhibited vomiting during her 7-day course with abdominal pain. Case discussed with Dr. Miller, Dr. Miller did evaluate the patient with recommendation to place patient on Cipro and Flagyl. Patient also is requesting something for constipation so lactulose was prescribed. She agrees to follow-up with her primary care physician and to return to the emergency department if she develops worsening abdominal pain, vomiting despite use of Zofran or if blood in stool occurs. Vital signs remained stable. Results were discussed with the patient as well as plan of care. Questions were answered. Vital Signs: Vital signs: Vital Signs Temperature 98.6 F 03/31/20 14:40 Pulse Rate 70 03/31/20 14:40 Respiratory Rate 18 03/31/20 14:40 Blood Pressure 108/91 03/31/20 14:40 Pulse Oximetry 98 03/31/20 14:40 MDM - Abdominal Pain Lab Data: Labs: Lab Results 03/31/20 03/31/20 03/31/20 Range/Units 10:43 10:43 11:20 WBC 13.7 H (4.0-10.0) 10^3/ uL RBC 5.09 (4.1-5.3) 10^6/u L Hgb 16.3 H (11.5-15.3) g/dL Hct 49.4 H (37.0-47.0) % MCV 97.1 (81-99) fL MCH 32.0 (28.0-34.0) pg MCHC 33.0 (30.0-36.0) g/dL RDW 12.6 (12.1-15.1) % Plt Count 368 (130-400) 10^3/c mm MPV 10.1 (7.4-10.4) fL Neut % (Auto) 61.7 % Lymph % (Auto) 29.0 % [place] % (Auto) 5.0 % Eos % (Auto) 3.1 % Baso % (Auto) 0.6 % Neut # (Auto) 8.48 H (1.8-7.7) 10^3/u L Lymph # (Auto) 4.0 (0.8-4.8) 10^3/u L [place] # (Auto) 0.7 (0.2-0.9) 10^3/u L Eos # (Auto) 0.4 (0.0-0.8) 10^3/u L Baso # (Auto) 0.1 (0.0-0.1) 10^3/u L Nucleated RBC % (a uto) 0 % Nucleated RBCs # 0.0 /100WBC Sodium 137 (136-145) mmol/L Potassium 3.9 (3.5-5.1) mmol/L Chloride 101 (98-107) mmol/L Carbon Dioxide 23 (22-29) mmol/L Anion Gap 16.9 (5-19) BUN 11 (6-20) mg/dL Creatinine 0.7 (0.5-0.9) mg/dL GFR Calculation 91.8 (90-130) mL/min Glucose 120 H (65-115) mg/dL Calculated Osmolal ity 285 (285-295) mOsm/k g Calcium 9.5 (8.5-10.5) mg/dL Total Bilirubin 0.4 (0.15-1.2) mg/dL AST 37 H (0-32) U/L ALT 59 H (0-33) U/L Alkaline Phosphata se 135 H (35-105) IU/L Total Protein 7.6 (6.6-8.7) g/dL Albumin 4.2 (3.5-5.2) g/dL Globulin 3.4 (1.3-4.6) g/dL Lipase 14 (13-60) U/L Urine Color Yellow (Yellow) Urine Appearance Cloudy (CLEAR) Urine pH 5 (5-7) Ur Specific Gravit y 1.020 (1.005-1.030) Urine Protein Neg (Negative) Urine Glucose (UA) Norm (Normal) Urine Ketones Negative (Negative) Urine Blood Neg (Negative) Urine Nitrate Negative (Negative) Urine Bilirubin Neg (Negative) Urine Urobilinogen 1 H (Negative) mg/dL Ur Leukocyte Josie ase Negative (Negative) Urine RBC 0-4 H (0-2) /hpf Urine WBC 0-4 H (0-5) /hpf Ur Squamous Epith Cells 25-40 H (0-5) /hpf Amorphous Sediment Not Reportable Urine Bacteria 4+ H (NONE) /hpf Imaging Data ^: Other Xray: Radiologist's impression: [place] [address] XRay Report Signed Patient: Nemo Ramirez #: [id number] : 1980Acct#:[id number] Age/Sex: 40 / FADM Date: 03/31/20 Loc: ERRoom/Bed: Attending Dr: Ordering Provider/Ordering MD: Katelyn Mccallum Date of Service: 03/31/20 Procedure(s): XR abdomen min 2V 60074 Accession Number(s): [id number] Report Number: [id number] PROCEDURE INFORMATION: Exam: XR Abdomen, 2 Views Exam date and time: 03/31/2020 11:33 AM Age: 40 years old Clinical indication: Abdominal pain; Localized; Left lower quadrant (llq); Additional info: Llq pain TECHNIQUE: Imaging protocol: XR of the abdomen. Views: 2 Views. COMPARISON: CT Abdomen/Pelvis Renal [id number] 12/24/2018 1:12 PM FINDINGS: Gastrointestinal tract: bowel gas pattern is nonspecific. Air filled large bowel including distal rectal gas. Scattered loops of air filled small bowel none of which are dilated. Large amount of stool throughout the large bowel. Intraperitoneal space: Normal. No free air. Bones/joints: Unremarkable for age. XR/XR abdomen min 2V 76859 IMPRESSION: 1. Bowel gas pattern is nonspecific. Air filled large bowel including distal rectal gas. 2. Large amount of stool throughout the large bowel. Dictated By:Mukul Valenzuela MD Signed By:Mukul Valenzuela MDSigned Date/Time:03/31/20 1200 DD/ 1159 CT Abd/Pel: Radiologist's impression: [facility] [address] [place] [address] CT Scan Report Signed Patient: Nemo Ramirze Unit #: [id number] : 1980 Age/Sex: 40 / F ADM Date: 03/31/20 Loc: ER Room/Bed: Attending Dr: Ordering Provider/Ordering MD: Katelyn Mccallum Date of Service: 03/31/20 Procedure(s): CT kidney stone [id number] Accession Number(s): [id number] Report Number: [id number] WS: [id number] CT ABDOMEN AND PELVIS NONCONTRAST HISTORY: pelvic pain TECHNIQUE: Imaging performed through the abdomen and pelvis. Coronal and sagittal reformats are submitted. All CT scans at [facility] use at least one of these dose optimization techniques: automated exposure control; mA and/or kV adjustment per patient size (includes targeted exams where dose is matched to clinical indication); or iterative reconstruction. DLP: 797.05 mGy.cm COMPARISON: 12/24/2018 Lower thorax: Lung bases are clear. Visualized heart is normal. No hiatal hernia. Liver: Moderate hepatomegaly and hepatic steatosis. No bile duct dilatation. Gallbladder: Minimally hydropic gallbladder. Gallbladder measures 4.5 cm transversely. No adjacent inflammation. No cholelithiasis identified by CT. No bile duct dilatation. Pancreas: Normal size and attenuation. Normal pancreatic duct. No pancreatitis or mass. Spleen: Normal. Adrenal glands: Normal. No mass. Right kidney: Normal size kidney. Nonobstructing 2 mm calcification in the lower pole. Left kidney: Normal size kidney with no mass or hydronephrosis. Aorta: Mild atherosclerosis abdominal aorta with no aneurysm. No free fluid, intraperitoneal air or significant lymphadenopathy. GI tract: Normal appendix. Abnormal loop of distal small bowel. There is a dilated loop of small bowel with wall thickening. The terminal ileum is also thickened. There is adjacent mesenteric edema surrounding the abnormally dilated loop of bowel. There is moderate distention suggesting a mild obstruction with a small bowel loop measuring up to 2.8 cm in diameter. No free air. Fatty changes at the ileocecal valve. Abdominal wall: Negative. No hernia. Pelvis: Prior hysterectomy. Osseous structures: Advanced degenerative disc disease at L3-4 and L4-5. CT/CT kidney stone [id number] IMPRESSION: 1. Dilated loop of distal small bowel with wall thickening and adjacent edema. Correlate for possible exacerbation of Crohn's disease. 2. No free fluid or free air. 3. Minimal hydropic gallbladder without adjacent wall thickening. Discharge Plan Discharge Patient Disposition: Home Clinical Impression: Partial small bowel obstruction, Substance abuse Abdominal pain Qualifiers: Abdominal location: generalized Qualified Code(s): R10.84 - Generalized abdominal pain Condition: Stable Prescriptions: New Cipro 500 mg tablet 500 mg PO Q12H Qty: 20 RF: 0 Flagyl 500 mg tablet 500 mg PO TID Qty: 30 RF: 0 lactulose 20 gram/30 mL solution 30 gm PO BID Qty: 1200 RF: 0 Zofran 4 mg tablet 4 mg PO TID PRN (Reason: Nausea And Vomiting) 4 Days Qty: 10 RF: 0 No Action hydroxyzine HCl 25 mg tablet 25 mg PO Q6H PRN (Reason: anxiety) Qty: 10 RF: 0 Discharge Orders: Discharge Order (Routine); Ordered 03/31/20 Ordered By: Katelyn Mccallum Referrals: Ni Mendez APN [Primary Care Provider] - Discharge Diet: Advance as tolerated and Clear Liquid Discharge Activity: Limit activity as instructed Patient Instructions: Constipation (ED), Abdominal Pain (ED), Bowel Obstruction (ED) Activity Restrictions/Additional Instructions: Return to the emergency department if you develop nausea vomiting despite taking Zofran Follow-up with your primary care physician in 2 to 3 days, social work faculty member will be contacting you with follow-up appointment Return to the emergency department if you develop blood in your stool or when vomiting. Clear liquid diet for the next 12 hours, advance diet as tolerated to bland foods such as crackers, chicken noodle soup or bread. Discharge Date/Time: 03/31/20 14:40 Coding Level of Care Code ED Switchboard Mechanic for Chg Fwd Exam Comprehensive
[2020-03-31 11:29] LABS: Basophils # 0.1 10^3/uL (0.0-0.1); Basophils % 0.6 %; Eosinophils # 0.4 10^3/uL (0.0-0.8); Eosinophils % 3.1 %; Hematocrit 49.4 % (37.0-47.0); Hemoglobin 16.3 g/dL (11.5-15.3); Mean Corpuscular Volume 97.1 fL (81-99); Mean Platelet Volume 10.1 fL (7.4-10.4); Monocytes # 0.7 10^3/uL (0.2-0.9); Neutrophils # 8.48 10^3/uL (1.8-7.7); Neutrophils % 61.7 %; Nucleated Red Blood Cells % 0 %; Platelet Count 368 10^3/cmm (130-400); Red Blood Count 5.09 10^6/uL (4.1-5.3); Red Cell Distribution Width 12.6 % (12.1-15.1); White Blood Count 13.7 10^3/uL (4.0-10.0)
[2020-03-31 11:39] VITALS: RESP 18; O2SAT 98
[2020-03-31] MEDS: morphine 4 mg/mL SDV 1 mL 2 MG IVP (11:39)
--- NOTE | 2020-03-31 11:41 | CT_ITS ---
WS: [id number] CT ABDOMEN AND PELVIS NONCONTRAST HISTORY: pelvic pain TECHNIQUE: Imaging performed through the abdomen and pelvis. Coronal and sagittal reformats are submi tted. All CT scans at [facility] use at least one of these dose optimization techniques: automated exposure control; mA and/or kV adjustment per patient size (includes targeted exams where d ose is matched to clinical indication); or iterative reconstruction. DLP: 797.05 mGy.cm COMPARISON: 12/24/2018 Lower thorax: Lung bases are clear. Visualized heart is normal. No hiatal hernia. Liver: Moderate hepatomegaly and hepatic steatosis. No bile duct dilatation. Gallbladder: Minimally hydropic gallbladder. Gallbladder measures 4.5 cm transversely. No adjacent in flammation. No cholelithiasis identified by CT. No bile duct dilatation. Pancreas: Normal size and attenuation. Normal pancreatic duct. No pancreatitis or mass. Spleen: Normal. Adrenal glands: Normal. No mass. Right kidney: Normal size kidney. Nonobstructing 2 mm calcification in the lower pole. Left kidney: Normal size kidney with no mass or hydronephrosis. Aorta: Mild atherosclerosis abdominal aorta with no aneurysm. No free fluid, intraperitoneal air or significant lymphadenopathy. GI tract: Normal appendix. Abnormal loop of distal small bowel. There is a dilated loop of small arlene l with wall thickening. The terminal ileum is also thickened. There is adjacent mesenteric edema surr ounding the abnormally dilated loop of bowel. There is moderate distention suggesting a mild obstruct ion with a small bowel loop measuring up to 2.8 cm in diameter. No free air. Fatty changes at the ile ocecal valve. Abdominal wall: Negative. No hernia. Pelvis: Prior hysterectomy. Osseous structures: Advanced degenerative disc disease at L3-4 and L4-5. CT/CT kidney stone [id number] IMPRESSION: 1. Dilated loop of distal small bowel with wall thickening and adjacent edema. Correlate for possible exacerbation of Crohn's disease. 2. No free fluid or free air. 3. Minimal hydropic gallbladder without adjacent wall thickening.
[2020-03-31 11:43] LABS: Alanine Aminotransferase 59 U/L (0-33); Albumin Level 4.2 g/dL (3.5-5.2); Alkaline Phosphatase 135 IU/L (35-105); Aspartate Amino Transferase 37 U/L (0-32); Blood Urea Nitrogen 11 mg/dL (6-20); Calcium 9.5 mg/dL (8.5-10.5); Carbon Dioxide 23 mmol/L (22-29); Chloride 101 mmol/L (98-107); Creatinine Clr Calc Pharmacy 102.2243; Globulin 3.4 g/dL (1.3-4.6); Glomerular Filtration Rate 91.8 mL/min (90-130); Glucose 120 mg/dL (65-115); Lipase 14 U/L (13-60); Osmolality Calculated 285 mOsm/kg (285-295); Sodium 137 mmol/L (136-145); Total Bilirubin 0.4 mg/dL (0.15-1.2); Total Protein 7.6 g/dL (6.6-8.7)
[2020-03-31 11:45] LABS: Add Urine Microscopic? YES; Bilirubin Urine Neg (Negative); Blood Urine Neg (Negative); Glucose Urine UA Norm (Normal); Ketones Urine Negative (Negative); Leukocyte Esterase Urine Negative (Negative); Nitrate Urine Negative (Negative); Protein Urine Neg (Negative); Urine Appearance Cloudy (CLEAR); Urine Color Yellow (Yellow); Urobilinogen Urine 1 mg/dL (Negative); pH Urine 5 (5-7)
[2020-03-31 11:47] LABS: Add Urine Culture? No; Bacteria Urine 4+ /hpf; RBC Urine 0-4 /hpf (0-2); Squamous Epithelial Cell Urine 25-40 /hpf (0-5); WBC Urine 0-4 /hpf (0-5)
[2020-03-31 11:51] LABS: Anion Gap 16.9 (5-19); Potassium 3.9 mmol/L (3.5-5.1)
[2020-03-31 11:55] VITALS: BP 135/89; PULSE 77; RESP 18; TEMP 36.8; O2SAT 98
[2020-03-31 13:25] VITALS: BP 130/87; PULSE 88; RESP 17; TEMP 36.4; O2SAT 96
[2020-03-31] MEDS: ketorolac 30 mg/mL INJ IVP (14:24)
[2020-03-31 14:39] VITALS: BP 108/91; PULSE 79; RESP 18; TEMP 37; O2SAT 98
[2020-03-31 14:40] VITALS: BP 108/91; PULSE 70; RESP 18; TEMP 37; O2SAT 98
--- NOTE | 2020-04-01 09:28 | DCPLANNER ---
weight loss centre manager had message to speak with patient about getting established with a primary care physician. weight loss centre manager unable to speak with patient due to no phone number in the patients chart. weight loss centre manager mailed patient a letter asking patient to call case liner to get established with a primary care.
== END 2020-03-31 14:40 | disposition home or self-care (01) ==
PROVIDERS: Emergency Provider Nurse Practitioner Family; PCP Nurse Practitioner Family
DX: K56.600 Partial intestinal obstruction, unspecified as to cause (principal); F19.10 Other psychoactive substance abuse, uncomplicated; Z86.19 Personal history of other infectious and parasitic diseases; F17.210 Nicotine dependence, cigarettes, uncomplicated
CPT/HCPCS: 74019; 74176; 80053; 81001; 83690; 85025; 87070; 87205; 87210; 96374; 96375; 99284; J1885; J2270

== ENCOUNTER → 2020-04-03 11:40 | Outpatient (BNVA) | payer SELFPAY | PROVIDERS: PCP Nurse Practitioner Family; Visit Provider Nurse Practitioner Family | DX: B18.2 Chronic viral hepatitis C (principal); F19.94 Other psychoactive substance use, unspecified with psychoactive substance-induced mood disorder; F12.20 Cannabis dependence, uncomplicated; F15.20 Other stimulant dependence, uncomplicated; F32.9 Major depressive disorder, single episode, unspecified; Z72.51 High risk heterosexual behavior | CPT/HCPCS: 87491; 87591 ==

== ENCOUNTER 2020-05-04 04:04 | Emergency (ER) | payer SELFPAY ==
[2020-05-04 04:16] VITALS: BP 121/96; PULSE 84; RESP 16; TEMP 36.5; O2SAT 100; BMI 28.3
--- NOTE | 2020-05-04 04:58 | W.ED.DENTAL ---
HPI - Dental/Oral General: Chief complaint: Dental/Oral Stated complaint: Dental/Oral Time Seen by Provider: 05/04/20 04:24 History of Present Illness: HPI Narrative: MD Complaint: tooth pain Location: Tooth # ([id number]) Onset (ago): day(s) (2) Duration: constant Severity: moderate Relieving factors: nothing Exacerbating factors: chewing and cold Context: history of dental caries and poor dental care Associated symptoms: Reports gum swelling; Denies fever(s), odynophagia, sore throat or tongue swelling Treatment prior to arrival: none Review of Systems Const: Denies: fever(s) ENMT: Denies: odynophagia Card: Denies: chest pain GI: Reports: nausea; Denies: vomiting All/Imm: Denies: tongue swelling PFS ED PFSH: Medical History (Updated 05/04/20 @ 04:58 by Mukul Pan DO) ADHD Cannabis use disorder, severe, dependence Hepatitis C Methamphetamine use disorder, severe Substance induced mood disorder Surgical History H/O Spinal surgery History of hysterectomy Myringotomy tube status Social History Smoking and tobacco status: current every day smoker Current gender identity: Female Physical Exam Const: GENERAL APPEARANCE: well developed ORIENTATION/CONSCIOUSNESS: Yes oriented to person, Yes oriented to place and Yes oriented to time HENMT: COMMON NORMALS: normocephalic, external ears normal and Normal external nose present HEAD & SCALP: normocephalic FACE & SINUS: normal facial exam NOSE: Normal external nose present and No nasal discharge present EXTERNAL EAR: Yes external ears normal MOUTH: tongue normal TEETH & GINGIVA: Yes abnormal tooth and associated gingiva, Yes gingiva abnormal edematous and tender; without any purulent discharge and Yes poor dentition THROAT: posterior oropharynx normal; no peritonsillar mass Eye: COMMON NORMALS: Equal, round and reactive pupils present, EOMs intact bilaterally and conjunctivae normal EYELID: eyelids normal CONJUNCTIVA: Yes conjunctivae normal PUPIL: Yes Equal, round and reactive pupils present Neck/C-Spine: GENERAL: No tracheal deviation Chest: COMMONS NORMALS: normal inspection of the chest CHEST: No tenderness Resp: COMMON NORMALS: clear to auscultation bilaterally EFFORT & INSPECTION: No tachypneic, No respiratory distress, No retractions, No uses accessory muscles and No tracheal deviation AUSCULTATION: clear to auscultation bilaterally, no rhonchi, no wheezes and lung sounds not diminished Cardio: COMMON NORMALS: regular rate and regular rhythm RATE: regular rate RHYTHM: regular rhythm HEART SOUNDS: no murmurs PERIPHERAL PULSES: radial pulses present Neuro: SENSORIUM/ORIENTATION: Yes oriented to person, Yes oriented to place and Yes oriented to time Psych: COMMON NORMALS: mental status grossly normal Course Vital Signs: Vital signs: Vital Signs Temperature 97.7 F 05/04/20 04:16 Pulse Rate 84 05/04/20 04:16 Respiratory Rate 16 05/04/20 04:16 Blood Pressure 121/96 05/04/20 04:16 Pulse Oximetry 100 05/04/20 04:16 Discharge Plan Discharge Patient Disposition: Home Clinical Impression: Dental caries, Gingival abscess Condition: Stable Prescriptions: New ketorolac 10 mg tablet 10 mg PO TID PRN (Reason: pain) Qty: 10 RF: 0 cephalexin 500 mg capsule 500 mg PO Q6H 10 Days Qty: 40 RF: 0 Discharge Orders: Discharge Order (Routine); Ordered 05/04/20 Ordered By: Mukul Pan Referrals: Ni Mendez APN [Primary Care Provider] - 4-7 days Discharge Diet: Advance as tolerated Discharge Activity: Increase activity as tolerated Patient Instructions: Dental Abscess (ED), Dental Caries (ED) Activity Restrictions/Additional Instructions: You should see a dentist as soon as possible in follow up. Coding Level of Care Code ED Equipment Mechanic Specialist for Qasim Redmond
[2020-05-04 05:12] VITALS: BP 132/87; PULSE 67; RESP 16; O2SAT 99
[2020-05-04] MEDS: clindamycin 150 mg Capsule 300 MG PO (05:14)
[2020-05-04] MEDS: oxyCODONE-APAP 5-325 mg Tablet 2 TAB PO (05:14)
[2020-05-04] MEDS: ketorolac 10 mg Tablet PO (05:14)
[2020-05-04] MEDS: dexamethasone 4 mg Tablet 10 MG PO (05:14)
== END 2020-05-04 05:14 | disposition home or self-care (01) ==
PROVIDERS: Emergency Provider Emergency Medicine; PCP Nurse Practitioner Family
DX: K02.9 Dental caries, unspecified (principal); F17.200 Nicotine dependence, unspecified, uncomplicated; K05.319 Chronic periodontitis, localized, unspecified severity
CPT/HCPCS: 12345; 99281; 99283; J8540